=== PATIENT | female | born 1960 ===

== ENCOUNTER 2022-07-15 05:40 | Day surgery (SDC) | payer OTHER ==
[~2022-07-15] VITALS: Ht 157.5 cm; Wt 74.4 kg
[~2022-07-15 05:40] MED LIST: COZAAR25 MG PO; OMEGA 3 1,0001 EACH PO; SYNJARDY 12.5-1 EACH PO; TRULICITY0.75 MG/0.; VITAMIN B PO; VITAMIN B6 PO; VITAMIN D PO; [UNRECOGNIZED DRUG - OTHER] PO
[2022-07-15] MEDS ORDERED: IBU600 MG PO (10:59)
[2022-07-15] MEDS ORDERED: CIPRO500 MG PO (11:02)
== END 2022-07-15 14:30 | disposition home or self-care (01) ==
LOC: CIR.AMB 05:40
PROVIDERS: ATTEND Obstetrics & Gynecology Gynecology
DX: N81.12 Cystocele, lateral (principal); I10 Essential (primary) hypertension; Z20.822 Contact with and (suspected) exposure to COVID-19

== ENCOUNTER 2023-05-01 07:57 | Outpatient (CLI) | payer OTHER ==
[~2023-05-01 07:57] MED LIST changes: +CIPRO500 MG PO; +IBU600 MG PO
== END 2023-05-01 07:58 | disposition home or self-care (01) ==
LOC: SONOGRAMA 07:57
PROVIDERS: ATTEND Pathology Anatomic Pathology & Clinical Pathology
DX: D34 Benign neoplasm of thyroid gland (principal); E07.89 Other specified disorders of thyroid; E04.1 Nontoxic single thyroid nodule